=== PATIENT | male | born 1950 | race Caucasian/White ===

== ENCOUNTER 2017-05-29 15:50 | Emergency (ER) | payer MEDICARE, OTHER ==
[~2017-05-29] VITALS: Ht 177.8 cm; Wt 86.2 kg
[~2017-05-29 15:50] MED LIST: AMLODIPINE BESY1 TAB PO; ASPIRIN81 M1 PO; ENALAPRIL MALEA20 MG PO; HYDR25T PO; HYDRALAZINE HYD50 MG PO; LABETALOL HCL200 MG PO; LATANOPROST2.5 ML OP; PRAVACHOL20 MG PO; QUALITY CHOICE10 M3 PO; ZYRTEC10 M3 PO
[2017-05-29] MEDS ORDERED: AUGMENTIN 875875 MG PO (16:12)
== END 2017-05-29 17:17 | disposition home or self-care (01) ==
LOC: ED 15:50
DX: S61.412A Laceration without foreign body of left hand, initial encounter (principal); F17.200 Nicotine dependence, unspecified, uncomplicated; Z79.899 Other long term (current) drug therapy; Z79.82 Long term (current) use of aspirin; W54.0XXA Bitten by dog, initial encounter; Y93.89 Activity, other specified; Y92.89 Other specified places as the place of occurrence of the external cause; Y99.9 Unspecified external cause status

== ENCOUNTER → 2019-04-23 | Outpatient (CLI) | payer MEDICARE, OTHER ==
[~2019-04-23] MED LIST changes: +AUGMENTIN 875875 MG PO
== END | disposition home or self-care (01) ==
LOC: RAD 09:46
DX: R07.89 Other chest pain (principal); Z87.891 Personal history of nicotine dependence

== ENCOUNTER → 2021-02-21 | Outpatient (CLI) | payer MEDICARE, OTHER | END | disposition home or self-care (01) | LOC: US 08:30 | PROVIDERS: ATTEND Family Medicine | DX: N50.3 Cyst of epididymis (principal); N43.3 Hydrocele, unspecified ==

== ENCOUNTER 2024-10-18 15:47 | Emergency (ER) | payer MEDICARE, OTHER ==
[~2024-10-18] VITALS: Ht 177.8 cm; Wt 90.7 kg
[2024-10-18] MEDS ORDERED: SODIUM CHLORIDE 0.9% 1,000 ML IV ONE (16:20)
[2024-10-18 16:38] LABS: BASO # 0.1 10*3/uL (0.0-0.1); BASO % 0.7 % (0.0-1.0); EOS # 0.2 10*3/uL (0.0-0.4); EOS % 3.2 % (1.0-4.0); HEMATOCRIT 43.6 % (42.0-52.0); MEAN CELL VOLUME 84.3 fl (80.0-94.0); MEAN CORPUSCULAR HGB 27.9 pg (27.0-31.0); MEAN PLATELET VOLUME 10.2 fl (9.6-12.3); MONO # 0.6 10*3/uL (0.1-1.0); MONO % 7.6 % (3.0-9.0); NEUT # 4.5 10*3/uL (2.3-7.9); NEUT % 59.2 % (47.0-73.0); PLATELET COUNT AUTOMATED 191 10*3/uL (130-400); RED BLOOD COUNT 5.17 10*6/uL (4.50-5.90); RED CELL DISTRI WIDTH 13.1 % (0-14.5); WHITE BLOOD COUNT 7.6 10*3/uL (4.8-10.8)
[2024-10-18 16:58] LABS: BUN 22 mg/dl (9-23); CHLORIDE 104 mmol/L (98-107); POTASSIUM 3.5 mmol/L (3.4-5.1)
[2024-10-18] MEDS ORDERED: CIPRO500 MG PO (17:04)
[2024-10-18] MEDS ORDERED: METRONIDAZOLE500 M1 PO (17:04)
[2024-10-18] MEDS ORDERED: metroNIDAZOLE 500 MG TAB PO ONE (17:05)
[2024-10-18] MEDS ORDERED: Ciprofloxacin Hydrochloride 500 MG TAB PO ONE (17:05)
== END 2024-10-18 17:15 | disposition home or self-care (01) ==
LOC: ED 15:47
PROVIDERS: Emergency Medicine
DX: A09 Infectious gastroenteritis and colitis, unspecified (principal); I10 Essential (primary) hypertension; E78.00 Pure hypercholesterolemia, unspecified; Z98.890 Other specified postprocedural states

== ENCOUNTER → 2025-07-21 | Outpatient (CLI) | payer MEDICARE, OTHER ==
[~2025-07-21] MED LIST changes: +CIPRO500 MG PO; +IOHEXOL 300 MG/ML 100 ML VIAL IV ONE; +IOHEXOL 300 MG/ML 100 ML VIAL ONE; +METRONIDAZOLE500 M1 PO
== END | disposition home or self-care (01) ==
LOC: CT 09:00
PROVIDERS: ATTEND Family Medicine
DX: R07.9 Chest pain, unspecified (principal); N28.1 Cyst of kidney, acquired; M47.814 Spondylosis without myelopathy or radiculopathy, thoracic region; K44.9 Diaphragmatic hernia without obstruction or gangrene; Z87.891 Personal history of nicotine dependence